=== PATIENT | female | born 2000 | race Caucasian/White ===

== ENCOUNTER → 2019-01-23 | Outpatient (CLI) | payer BC, SELFPAY ==
[2019-01-24 09:46] LABS: Hepatitis B Surface Antibody Non-Reactive; Rubella IgG WCH Employee > 500.0 IU/mL
[2019-01-27 17:05] LABS: V-Zoster IgG (Immunity) < 135 index (Immune >165)
== END | disposition home or self-care (01) ==
PROVIDERS: Family Provider Family Medicine; PCP Family Medicine; Visit Provider Family Medicine
DX: Z00.00 Encounter for general adult medical examination without abnormal findings (principal); Z01.84 Encounter for antibody response examination; Z02.0 Encounter for examination for admission to educational institution
CPT/HCPCS: 36415; 86706; 86735; 86762; 86765; 86787; 87798

== ENCOUNTER → 2020-11-28 | Outpatient (CLI) | payer BC, SELFPAY ==
[2020-11-28 11:40] VITALS: BMI 26.1
[2020-12-02 20:07] LABS: Chlamydia By Nucleic Acid AMP Negative (Negative)
[2020-12-02 20:35] LABS: Gonococcus By Nucleic Acid AMP Negative (Negative)
== END | disposition home or self-care (01) ==
LOC: LABSPEC 14:03
PROVIDERS: PCP Family Medicine; Visit Provider Nurse Practitioner Women's Health
DX: N94.9 Unspecified condition associated with female genital organs and menstrual cycle (principal); Z11.3 Encounter for screening for infections with a predominantly sexual mode of transmission
CPT/HCPCS: 87070; 87205; 87491; 87591

== ENCOUNTER → 2021-04-11 | Outpatient (CLI) | payer BC, SELFPAY ==
[2021-04-15 12:32] LABS: HPV Reflexed? NOT INDICATED
== END | disposition home or self-care (01) ==
PROVIDERS: PCP Family Medicine; Referring Provider Obstetrics & Gynecology; Visit Provider Obstetrics & Gynecology
DX: Z12.4 Encounter for screening for malignant neoplasm of cervix (principal)
CPT/HCPCS: 88175; G0145

== ENCOUNTER → 2022-08-14 | Outpatient (CLI) | payer BC, SELFPAY ==
[2022-08-14 12:26] LABS: Absolute Lymphocyte Count 2.62 X10^3/uL (0.83-4.51); Absolute Neutrophil Count 2.8 X10^3/uL (2.0-7.7); Basophil# 0.04 X10^3/uL; Basophil% 0.7 % (0-1); Eosinophil# 0.05 X10^3/uL; Eosinophils% 0.8 % (0-5); Hematocrit 43.6 % (37-47); Hemoglobin 14.5 g/dL (12.0-15.0); Lymphocyte # 2.62 X10^3/ul (0.83-4.51); Lymphocyte % 44.5 % (19-41); Mean Corp Hgb Conc 33.3 g/dL (32-36); Mean Corpuscular Hgb 30.7 pg (27.0-32.0); Mean Corpuscular Volume 92.4 fL (81-99); Monocyte# 0.41 X10^3/uL; NRBC Flagged by Analyzer 0 % (0-5); Neutrophil # 2.75 X10^3/uL (2.7-7.7); Neutrophil % 46.7 % (47-70); Platelet Count 191 K/mm3 (150-450); RBC Distribution Width CV 12.1 % (11.6-14.6); Red Blood Count 4.72 M/mm3 (4.2-5.4); White Blood Count 5.9 K/mm3 (4.4-11.0)
[2022-08-14 12:55] LABS: ALB/GLOB Ratio 1.1 RATIO (0.9-2.4); AST(SGOT) 16 U/L (15-37); Alanine Aminotransfer ALT/SGPT 18 U/L (13-56); Albumin, Serum 3.8 g/dL (3.2-5.0); Alkaline Phosphatase 90 U/L (45-117); Anion Gap 7 (5-15); BUN 13 mg/dL (7-18); BUN/Creat Ratio 12.6 RATIO (10-20); Calcium,Total 9.4 mg/dL (8.5-10.1); Chloride 106 mmol/L (98-107); Creatinine, Serum 1.03 mg/dL (0.55-1.02); EST Glomerular Filtration Rate 71 mL/min (>60); Est Glom Filt Rate - Afr Amer 85 mL/min (>60); Globulin 3.6 g/dL (2.2-4.2); Glucose 88 mg/dL (74-106); Potassium 3.9 mmol/L (3.5-5.1); Protein, Total 7.4 g/dL (6.4-8.2); Sodium Level 139 mmol/L (136-145)
== END | disposition home or self-care (01) ==
PROVIDERS: PCP Family Medicine; Visit Provider Family Medicine
DX: R10.9 Unspecified abdominal pain (principal)
CPT/HCPCS: 36415; 80053; 85025

== ENCOUNTER → 2022-08-22 | Outpatient (CLI) | payer BC, SELFPAY ==
--- NOTE | 2022-08-22 10:51 | US_ITS ---
STUDY: ABDOMINAL ULTRASOUND REASON FOR EXAM: Female, 22 years old. Abdominal pain. TECHNIQUE: Transabdominal ultrasound was performed with real-time and static reed scale imaging. TECHNICAL QUALITY: Adequate. COMPARISON: None. FINDINGS: Liver: The liver measures cm. There is normal echogenicity of the liver. The bile ducts are within normal limits. There is hepatic color flow. The direction of portal flow is hepatopetal. There is no demonstrated mass lesion. Portal vein measurement: Gallbladder: Normal distended gallbladder. The gallbladder wall measures 1 mm. There is a negative sonographic Alvarado''s sign. There is no pericholecystic fluid. There are no gallstones. Common Bile Duct (C.B.D.): The common bile duct measures 2 mm. Pancreas: Normal size of the head, body and tail of the pancreas. There is normal echogenicity of the pancreas. There is no demonstrated pancreatic mass or cyst. The pancreatic duct is not dilated. Spleen: Normal size of the spleen. The spleen measures 8.9 x 3.0 x 3.3 cm. Right Kidney: Normal size of the right kidney. The right kidney measures 9.8 x 3.5 x 4.3 cm. Normal renal cortex. The right cortex measures 1.2 cm. There is no demonstrated renal mass or cyst. There is no right hydronephrosis. Left Kidney: Normal size of the left kidney. The left kidney measures 9.4 x 5.2 x 5.2 cm. Normal renal cortex. The left cortex measures 1.0 cm. There is no demonstrated renal mass or cyst. There is no left hydronephrosis. Aorta: Proximal diameter is 1.6 cm. Mid diameter is 1.2 cm. Distal diameter is 1.2 cm. No aneurysm. I.V.C.: The IVC is patent. There is no ascites. US/Abdomen Complete IMPRESSION: Normal abdominal ultrasound examination. COMMENT: computer technologist notes minimal floating debris seen in gallbladder with patient turned into LLD position. I am unable to confirm the presence of sludge inside the gallbladder fossa. Electronically Signed: Tk Barreto MD at 11:50 EST ,
== END | disposition home or self-care (01) ==
PROVIDERS: PCP Family Medicine; Referring Provider Family Medicine; Visit Provider Family Medicine
DX: R10.9 Unspecified abdominal pain (principal)
CPT/HCPCS: 76700

== ENCOUNTER → 2024-05-19 | Outpatient (CLI) | payer BC, SELFPAY ==
--- OUTSIDE RECORDS SUMMARY | 2024-05-19 17:18 | XMS RPT_ITS | CCD ---
Author Organization [facility] Results Test Name Value Interpretation Reference Range Facil ity OBSOLETEon 04-08-2019 OBSOLETE Refill (WOOB) DORA PUGA ([id number]) 2000 F Date Time Provider Department 04/08/19 [facility]OLDER) IFTIKHAR During your visit today, we recorded the following information about you: Yolande Monroy RN 04/10/2019 10:41 AM Signed Left message for patient to return phone call. Patient last seen in office 11/18/2017. Cancelled yearly exam 02/14/2019. Please schedule annual exam when patient returns phone call. Regine Cordova RN 04/12/2019 1:04 PM Signed See 02/13/19 phone note. Patient transferred care. Regine Cordova RN Allergies As of Date: 04/08/2019 Noted Allergy Reaction CODEINE 05/20/2015 4 - Hives Date Reviewed: 11/18/2017 Reviewed by: Emi Holder - Fully Assessed Reason for Visit: Refill Request [94] Prescriptions as of 04/08/2019 Sig: ESTARYLLA 0.25 MG-35 MCG TABL* TAKE 1 TABLET DAILY (TAKE ACT* Problem List As Of Date: 04/08/2019 (None) Encounter Status:Closed by REGINE CORDOVA RN on 04/12/19 [facility] OBSOLETEon 02-01-2019 OBSOLETE Refill (WOOB) DORA PUGA ([id number]) 2000 F Date Time Provider Department 02/01/19 JU HARDIN ([facility]) IFTIKHAR During your visit today, we recorded the following information about you: Suri Haeys RN 02/01/2019 8:13 AM Signed Refill request received from pharmacy for patients OCP Rx. Patient last seen in the office on 11/18/17. Please file temporary refill if appropriate. PSS: Please contact patient to schedule annual exam. Thank you. Suri Hayes RN Allergies As of Date: 02/01/2019 Noted Allergy Reaction CODEINE 05/20/2015 4 - Hives Date Reviewed: 11/18/2017 Reviewed by: Emi ([facility]) Glory - Fully Assessed Reason for Visit: Refill Request [94] Order(s):ESTARYLLA 0.25-35 mg-mcg per tabletTAKE 1 TABLET DAILY (TAKE ACTIVE PILLS ONLY)Disp: 112 tabletRfl: 0 Prescriptions as of 02/01/2019 Sig: ESTARYLLA 0.25 MG-35 MCG TABL* TAKE 1 TABLET DAILY (TAKE ACT* Problem List As Of Date: 02/01/2019 (None) Prescriptions ordered this encounter Disp Refills Start End ESTARYLLA 0.25 MG-35 MCG TABLET 112 * 0 02/01/2019 Sig: TAKE 1 TABLET DAILY (TAKE ACTIVE PILLS ONLY) Medications Discontinued During This Encounter norgestimate 0.25 mg-ethinyl estradi* 4 Pa* 4 11/10/2017 02/01/2019 Route: ORAL Sig: Take 1 tablet by mouth once daily. Take active pills only Disc: Reason for discontinue is not on file. Encounter Status:Closed by EMI HOLDER on 02/01/19 [facility] Summary Purpose Family History No Family History Records Found Advance Directives No Advanced Directives Records Found Additional Source Comments INFORMATION SOURCE (unrecogn ized section and content) DATE CREATED AUTHOR 04/12/2019 [facility] FOR RECORDS PERTAINING TO PATIENTS WHO ARE OR HAVE BEEN ENROLLED IN A CHEMICAL DEPENDENCY/SUBSTANCEABUSE PROGRAM, SOME INFORMATION MAY BE OMITTED. This clinical summary was aggregated from multiple sources. Caution should be exercised in using it in the provision of clinical care. This summary normalizes information from multiple sources, and as a consequence, information in this document may materially change the coding, format and clinical context of patient data. In addition, data may be omitted in some cases. CLINICAL DECISIONS SHOULD BE BASED ON THE PRIMARY CLINICAL RECORDS. [facility] [employer] [facility]. provides no warranty or guarantee of the accuracy or completeness of information in this document.
[2024-05-27 16:43] LABS: HPV Reflexed? NOT INDICATED
== END | disposition home or self-care (01) ==
LOC: LABSPEC 15:30
PROVIDERS: PCP Family Medicine; Referring Provider Obstetrics & Gynecology; Visit Provider Obstetrics & Gynecology
DX: Z12.4 Encounter for screening for malignant neoplasm of cervix (principal)
CPT/HCPCS: 88175; G0145

== ENCOUNTER → 2025-06-17 | Outpatient (CLI) | payer BC, SELFPAY ==
--- OUTSIDE RECORDS SUMMARY | 2025-06-17 15:02 | XMS RPT_ITS | CCD ---
Author Organization [facility] Care Team Providers Care Test Deskman Name Role Phone Dr. Tiffany Ford Primary Care Provider Dr. Tiffany Ford Referring Provider Dr. Rita Valdez Attending Provider Tiffany Ford Primary Care Unavailable Tiffany Ford Referring Unavailable Rita Valdez Attending Rita Pool Attending Rita Pool Referring Tiffany Xiao Primary Care Unavailable Allergies Allergy Classification Reported Allergen(s) Allergy Type Date of Onset Reaction(s) Facility (3 sources) Codeine Drug Allergy 04-17-2022 unknown [facility] (1 source) Codeine Drug Allergy 05-19-2024 [facility] Repository Medications Current Medications Medication Drug Class(es) Dates Sig (Normalized) Sig (Original) esomeprazole 20 mg delayed release oral capsule (3 sources) Proton Pump Inhibitor Start: 11-28-2020 take 20 mg by mouth once daily Esomeprazole Magnesium Active 20 MG PO DAILY November 27, 2020 11:00pm Norgestimate-Ethiny l Estradiol (20 sources) Progestin, Estrogen Start: 06-19-2022 take 1 tablet by mouth once daily Norgestimate-Ethiny l Estradiol (Sprintec (28)) 0.25-35 mg-mcg tablet Active 1 TABLET PO DAILY June 19, 2022 3:10pm Start: 04-17-2022 End: 06-19-2022 take 1 tablet by mouth once daily Norgestimate-Ethinyl Estradiol (Sprintec (28)) 0.25-35 mg-mcg tablet Discontinued 1 TABLET PO DAILY April 17, 2022 2:09pm June 19, 2022 3:10pm Start: 03-24-2022 End: 04-17-2022 take 1 tablet by mouth once daily Norgestimate-Ethinyl Estradiol (Sprintec (28)) 0.25-35 mg-mcg tablet Discontinued 1 TABLET PO DAILY March 24, 2022 7:46am April 17, 2022 2:09pm Start: 04-28-2021 End: 03-24-2022 take 1 tablet by mouth once daily Norgestimate-Ethinyl Estradiol (Sprintec (28)) 0.25-35 mg-mcg tablet Discontinued 1 TABLET PO DAILY April 28, 2021 12:34pm March 24, 2022 7:46am Start: 04-11-2021 End: 04-28-2021 take 1 tablet by mouth once daily Norgestimate-Ethinyl Estradiol (Sprintec (28)) 0.25-35 mg-mcg tablet Discontinued 1 TABLET PO DAILY April 11, 2021 11:17am April 28, 2021 12:34pm Start: 04-05-2020 End: 04-11-2021 take 1 tablet by mouth once daily Norgestimate-Ethinyl Estradiol (Sprintec (28)) 0.25-35 mg-mcg tablet Discontinued 1 TABLET PO DAILY April 05, 2020 10:57am April 11, 2021 11:17am Start: 02-27-2020 End: 04-05-2020 take 1 tablet by mouth once daily Norgestimate-Ethinyl Estradiol (Sprintec (28)) 0.25-35 mg-mcg tablet Discontinued 1 TABLET PO DAILY February 27, 2020 8:11am April 05, 2020 10:58am Start: 09-12-2019 End: 02-27-2020 take 1 tablet by mouth once daily Norgestimate-Ethinyl Estradiol (Sprintec (28)) 0.25-35 mg-mcg tablet Discontinued 1 TABLET PO DAILY September 12, 2019 3:08pm February 27, 2020 8:11am Start: 02-20-2019 End: 09-12-2019 take 1 tablet by mouth once daily Norgestimate-Ethinyl Estradiol (Sprintec (28)) 0.25-35 mg-mcg tablet Discontinued 1 TABLET PO DAILY February 19, 2019 11:00pm September 12, 2019 3:09pm Completed/Discontinued Medications Medication Drug Class(es) Dates Sig (Normalized) Sig (Original) metroNIDAZOLE 500 mg oral tablet (3 sources) Nitroimidazole Antimicrobial Start: 11-28-2020 End: 04-11-2021 take 1 tablet by mouth twice daily Metronidazole (Flagyl) 500 mg tablet Discontinued 500 MG PO TWICE A DAY November 27, 2020 11:00pm April 11, 2021 10:50am Problems Problem Classification Problem Date Documented Da te Episodic/Chronic Other screening for suspected conditions (not mental disorders or infectious disease) (1 source) Encounter for screening for malignant neoplasm of cervix; Translations: [Encounter for screening for malignant neoplasm of cervix] Onset: 06-09-2024 Episodic Results Test Name Value Interpretation Reference Range Facility PAP I-G w/rfx hrHPV-Aptimaon 05-27-2024 ADEQ Comment Normal . [facility] Comment on above: Order Comment: Specgeovanna streeter Comment: [id number] Specimen Comment: No. of containers..01 ThinPrep Vial Result Comment: Sati sfactory for evaluation. Endocervical and/or squamous metaplastic cells (endocervical component) are present. Performed By: #### L 7400.0353 #### [facility] [address] [place], [place], [id number] COMM . Normal . [facility] Comment on above: Order Comment: Sadiq streeter Comment: [id number] Specimen Comment: No. of containers..01 ThinPrep Vial Performed By: #### L 7400.0353 #### [facility] [address] [place], [place], [id number] COMMENT Comment Normal . [facility] Comment on above: Order Comment: Ryanchanning home Comment: [id number] Specimen Comment: No. of containers..01 ThinPrep Vial Result Comment: This liquid based ThinPrep(R) pap test was screened with the use of an image guided system. Performed By: #### L 7400.0353 #### [facility] [address] [place], [place], [id number] DIAG Comment Normal . [facility] Comment on above: Order Comment: Speci men Comment: [id number] Specimen Comment: No. of containers..01 ThinPrep Vial Result Comment: NEGA TIVE FOR INTRAEPITHELIAL LESION OR MALIGNANCY. CELLULAR CHANGES ASSOCIATED WITH INFLAMMATION ARE PRESENT. Performed By: #### L 7400.0353 #### [facility] [address] [place], [address] HPV RFLX Comment Normal . [facility] Comment on above: Order Comment: Speci men Comment: [id number] Specimen Comment: No. of containers..01 ThinPrep Vial Result Comment: The HPV DNA reflex criteria were not met with this specimen result therefore, no HPV testing was performed. Performed at: [facility] [id number] Data Center Consultant: Tereza Faith MD, Phone: [phone] Performed By: #### L 7400.0353 #### [facility] [address] [place], [place], [id number] PAPSMR Comment Normal . [facility] Comment on above: Order Comment: Speci men Comment: [id number] Specimen Comment: No. of containers..01 ThinPrep Vial Result Comment: The Pap smear is a screening test designed to aid in the detection of premalignant and malignant conditions of the uterine cervix. It is not a diagnostic procedure and should not be used as the sole means of detecting cervical cancer. Both false-positive and false-negative reports do occur. Performed By: #### L 7400.0353 #### [facility] [address] [place], [place], [id number] PERFORM Comment Normal . [facility] Comment on above: Order Comment: Speci men Comment: [id number] Specimen Comment: No. of containers..01 ThinPrep Vial Result Comment: Renée Trejo Jury Consultant (ASCP) Performed By: #### L 7400.0353 #### [facility] [address] [place], [address] Tube Winder Hand Office Visit Reporton 05-19-2024 Tube Winder Hand Office Visit Report [facility] [address], [address] [place] [address] OFFICE VISIT Date of Service: 05/19/24 MR#: [id number] Acct: [id number] Name: DORA PUGA Rep #: [id number] : 2000 Provider: Dr. 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 Operator Required: No Is patient in pain?: No Allergies codeine Allergy (Mild, Verified 05/19/24 14:31) unknown Medications ???Medication ???Instructions ???Recorded ???Confirmed ???Type multivitamin 1 tab PO DAILY 05/14/23 05/19/24 History Is last menstrual period known: No Post menopausal: No Patient : No : [facility] Medical History Exercise-induced asthma Surgical History S/P tonsillectomy and adenoidectomy Family History Mother Stomach cancer Grandfather Skin cancer Pancreatic cancer Social History (Updated 05/19/24 @ 14:33 by Sherry Clemente) current occupational status: employed 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 - [employer] Gonzalez Smoking Status: Never smoker alcohol intake: never substance use type: does not use caffeine: Yes what type of physical activity do you participate in: running and weight training frequency: 5-6 times per week seatbelt use: always do you feel safe at home: Yes 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 (was my patient at [facility], Her mom and her sister are too. her mom 3 years ago stomach cancer. (Anitha Puga)) pt got in March 2023 to her boyfriend since 8th grade. have been in a home that they are renovating . not sure if they are ready for a baby yet. maybe in 5 years. She stopped her ocp though in meantime. Last PAP: due History of abnormal PAP: no Last mammogram: due at 39 History of abnormal mammogram: n/a Colon cancer screening: due at 44 Other preventative health care screenings: PCP Liliana Female Reproductive History Cycle Length: 21-35 Bleeding Duration: 5 Questions: metorrhagia: No, sexually active: Yes, dyspareunia: No and PCB: No Menopausal Symptoms: No hot flashes, No night sweats, No weight change, No mood changes, No difficulty concentrating, No sleep problems and No change in libido ROS Const Constitutional: Reports as per HPI; Denies fatigue, increased appetite, poor appetite, night sweats, weight gain or weight loss Cardio Card: Denies chest pain Resp Resp: Denies cough or dyspnea GI GI: Reports as per HPI; Denies abdominal pain, bloating, constipation, nausea or vomiting : Reports as per HPI and other; Denies difficulty voiding, dysuria, hematuria, hot flashes, nipple discharge, pelvic pain, prolapse symptoms, urinary frequency, urinary incontinence, urinary urgency, vaginal discharge, vaginal dryness, vaginal odor or vaginal pruritus Skin Skin/Breast: Denies changing lesions, breast mass, breast pain, breast skin changes or nipple discharge Psych Psych: Denies anxiety, change in libido, depression or difficulty concentrating Exam Const General: cooperative, healthy appearing, comfortable, no acute distress, well developed and well groomed [facility] Head: normal to inspection and normocephalic Ears: hearing grossly normal bilaterally and external ears normal Nose: external nose normal Face and sinus: normal facial exam Neck Neck: normal visual inspection, full ROM and no lymphadenopathy Thyroid: thyroid normal Chest Chest palpation inspection: normal inspection of the chest Breast inspection: normal inspection of the breasts and normal inspection of the axillae Breast palpation: normal palpation of the breasts, normal palpation of the axillae and no axillary lymphadenopathy Resp Effort Inspection: normal respiratory effort GI Inspection: normal to inspection and non-distended Palpation: soft, no hepatosplenomegaly and no guarding General: bladder normal to palpation External Female Exam: normal external appearance, normal appearance of the urethra and no lesions Urethra: normal appearance of the urethra and normal palpation Speculum Exam - Vagina: normal appearance of the vagina and normal vaginal discharge Speculum Exam - Cervix: (more content not included)... Normal [facility] Absolute lymphocyte countOrd ered By: Dr. Ford on 08-14-2022 Lymphocytes Auto (Unsp spec) [#/Vol] 2.62 10*3/uL 0.83-4.51 [facility] Basophil percentageOrdered B y: Dr. Ford on 08-14-2022 Basophils/100 WBC (Bld) 0.7 % 0-1 [facility] Bilirubin [Mass/Vol] 1.60 mg/dL 0.20-1.00 [facility] Comment on above: For patients on eltr ombopag therapy, use of Dimension [place] TBIL is not recommended. Chloride [Moles/Vol] 106 mmol/L 98-107 [facility] Eosinophils/100 WBC (Bld) 0.8 % 0-5 [facility] Glucose [Mass/Vol] 88 mg/dL 74-106 [facility] Neutrophils (Bld) [#/Vol] 2.8 10*3/uL 2.0-7.7 [facility] Neutrophils/100 WBC (Bld) 46.7 % 47-70 [facility] Potassium [Moles/Vol] 3.9 mmol/L 3.5-5.1 [facility] Protein [Mass/Vol] 7.4 g/dL 6.4-8.2 [facility] Sodium [Moles/Vol] 139 mmol/L 136-145 [facility] WBC (Bld) [#/Vol] 5.9 10*3/uL 4.4-11.0 [facility] Blood erythrocytes count (nu mber/volume)Ordered By: Dr. Ford on 08-14-2022 RBC (Bld) [#/Vol] 4.72 10*6/uL 4.2-5.4 [facility] Blood hemoglobin measurement (mass/volume)Ordered By: Dr. Ford on 08-14-2022 Hemoglobin (Bld) [Mass/Vol] 14.5 g/dL 12.0-15.0 [facility] Blood lymphocytes/100 leukoc ytesOrdered By: Dr. Ford on 08-14-2022 Lymphocytes/100 WBC (Bld) 44.5 % 19-41 [facility] Blood monocytes/100 leukocyt esOrdered By: Dr. Ford on 08-14-2022 Monocytes/100 WBC (Bld) 7.0 % 0-10 [facility] Blood platelet mean volumeOr dered By: Dr. Ford on 08-14-2022 Platelet mean volume (Bld) [Entitic vol] 12.0 fL 6.2-12.0 [facility] Determination of erythrocyte mean corpuscular volume (MCV)Ordered By: Dr. Ford on 08-14-2022 MCV (RBC) [Entitic vol] 92.4 fL 81-99 [facility] Hematocrit Auto (Bld) [Volum e fraction]Ordered By: Dr. Ford on 08-14-2022 Hematocrit (Bld) [Volume fraction] 43.6 % 37-47 [facility] - Chemistry and C hemistry - challengeOrdered By: Dr. Ford on 08-14-2022 ALP [Catalytic activity/Vol] 90 U/L 45-117 [facility] ALT [Catalytic activity/Vol] 18 U/L 13-56 [facility] CO2 [Moles/Vol] 26.0 mmol/L 21.0-32.0 [facility] Globulin (S) [Mass/Vol] 3.6 g/dL 2.2-4.2 [facility] Urea nitrogen/Creatinine [Mass ratio] 12.6 mg/mg 10-20 [facility] - Hematology and Cell countsOrdered By: Dr. Ford on 08-14-2022 Erythrocyte distribution width (RBC) [Entitic vol] 41.0 fL 35.1-43.9 [facility] Erythrocyte distribution width (RBC) [Ratio] 12.1 % 11.6-14.6 [facility] Immature granulocytes/100 WBC (Bld) 0.300 % 0.0-0.9 [facility] Comment on above: IG% - Immature Granu locytes (promyelocytes, myelocytes and metamyelocytes) > 1% indicates that a LEFT SHIFT is Present. MCH (RBC) [Entitic mass] 30.7 pg 27.0-32.0 [facility] Nucleated RBC/100 WBC (Bld) [Ratio] 0 % 0-5 [facility] MCHC Auto (RBC) [Mass/Vol]Or dered By: Dr. Ford on 08-14-2022 MCHC (RBC) [Mass/Vol] 33.3 g/dL 32-36 [facility] No Panel InformationOrdered By: Dr. Ford on 08-14-2022 Estimated GFR (MDRD) Amer 85 mL/min >60 [facility] Comment on above: GFR Calc Estimated GFR (MDRD) Non-Af Amer 71 mL/min >60 [facility] Comment on above: Non- GFR Calc Platelets bldOrdered By: Dr. Ford on 08-14-2022 Platelets (Bld) [#/Vol] 191 10*3/uL 150-450 [facility] Serum or plasma albumin terra urement (mass/volume)Ordered By: Dr. Ford on 08-14-2022 Albumin [Mass/Vol] 3.8 g/dL 3.2-5.0 [facility] Serum or plasma albumin/glob ulin mass ratioOrdered By: Dr. Ford on 08-14-2022 Albumin/Globulin [Mass ratio] 1.1 {ratio} 0.9-2.4 [facility] Serum or plasma calcium terra urement (mass/volume)Ordered By: Dr. Ford on 08-14-2022 Calcium [Mass/Vol] 9.4 mg/dL 8.5-10.1 [facility] Serum or plasma creatinine m easurement (mass/volume)Ordered By: Dr. Ford on 08-14-2022 Creatinine [Mass/Vol] 1.03 mg/dL 0.55-1.02 [facility] Comment on above: The validity of the calculated GFR & GFRAA in patients over 70 years has not been determined. Clinical correlation is essential. Serum or plasma urea nitroge n measurement (mass/volume)Ordered By: Dr. Ford on 08-14-2022 Urea nitrogen [Mass/Vol] 13 mg/dL 7-18 [facility] Thin prep Papanicolaou smear with manual screeningOrdered By: Dr. Ford on 08-14-2022 Thin prep Papanicolaou smear with manual screening 16 U/L 15-37 [facility] Thin prep Papanicolaou smear with manual screening 7 5-15 [facility] OBSOLETEon 04-08-2019 OBSOLETE Refill (WOOB) DORA PUGA ([id number]) 2000 F Date Time Provider Department 04/08/19 EMI HOLDER) IFTIKHAR During your visit today, we recorded the following information about you: Yolande Monroy RN 04/10/2019 10:41 AM Signed Left message for patient to return phone call. Patient last seen in office 11/18/2017. Cancelled yearly exam 02/14/2019. Please schedule annual exam when patient returns phone call. Pablo Segal RN 04/12/2019 1:04 PM Signed See 02/13/19 phone note. Patient transferred care. Pablo Segal RN Allergies As of Date: 04/08/2019 Noted Allergy Reaction CODEINE 05/20/2015 4 - Hives Date Reviewed: 11/18/2017 Reviewed by: Emi Holder - Fully Assessed Reason for Visit: Refill Request [94] Prescriptions as of 04/08/2019 Sig: ESTARYLLA 0.25 MG-35 MCG TABL* TAKE 1 TABLET DAILY (TAKE ACT* Problem List As Of Date: 04/08/2019 (None) Encounter Status:Closed by PABLO SEGAL RN on 04/12/19 Normal [facility] OBSOLETEon 02-01-2019 OBSOLETE Refill (WOOB) DORA PUGA ([id number]) 2000 F Date Time Provider Department 02/01/19 JU HARDIN ([facility]) IFTIKHAR During your visit today, we recorded the following information about you: Suri Hayes RN 02/01/2019 8:13 AM Signed Refill request received from pharmacy for patients OCP Rx. Patient last seen in the office on 11/18/17. Please file temporary refill if appropriate. PSS: Please contact patient to schedule annual exam. Thank you. Suri Hayes RN Allergies As of Date: 02/01/2019 Noted Allergy Reaction CODEINE 05/20/2015 4 - Hives Date Reviewed: 11/18/2017 Reviewed by: [facility] - Fully Assessed Reason for Visit: [...] Encounter Status:Closed by EMI HOLDER on 02/01/19 Normal [facility] Vital Signs Date Time Vital Sign Value Performing Clinician Mellisa samson 04-17-2022 14:48-0400 Body height 160.[address] Tiffany Ford Work Phone: [facility] Work Phone: 04-17-2022 14:46-0400 Body mass index (BMI) [Ratio] 24.2 kg/m2 Dr. Tiffany Ford Work Phone: [facility] Work Phone: 04-17-2022 14:46-0400 Body weight 64.[address] Tiffany Ford Work Phone: [facility] Work Phone: 04-17-2022 14:46-0400 Diastolic blood pressure 82 mm[Hg] Dr. Tiffany Ford Work Phone: [facility] Work Phone: 04-17-2022 14:46-0400 Systolic blood pressure 135 mm[Hg] Dr. Tiffany Ford Work Phone: [facility] Work Phone: Encounters Encounter Date Encounter Type Care Provider Facility Start: 05-19-2024 End: 05-19-2024 ambulatory Tiffany Ford [place] [place]: 05-19-2024 End: 05-19-2024 ambulatory Rita Valdez Facility:[facility] Start: 08-22-2022 End: 08-22-2022 ambulatory [facility] Work Phone: Start: 08-22-2022 End: 08-22-2022 Patient encounter procedure [facility]tras[facility], [facility] Start: 08-14-2022 End: 08-14-2022 ambulatory [facility] Work Phone: Start: 08-14-2022 End: 08-14-2022 Patient encounter procedure [facility]-Thelma Vicente [facility] Start: 04-17-2022 End: 04-17-[address] Tiffany Ford Work Phone: [facility] Start: 04-11-[address] Sagrario Ford Work Phone: [facility] Procedures Date Procedure Procedure Detail Performing Clinician Start: 08-22-2022 CT of abdomen Payers Date Payer Category Payer Self-pay [id number] 2023 Unknown [id number] Unknown ANTHEM [id number] Unknown [employer] [place] [id number] Unknown [employer] [place] [id number] Unknown [facility] PACKAGE PLAN [id number] Unknown [id number] Unknown [id number] Social History Date Type Detail Facility Start: 04-17-2022 Tobacco smoking stat [facility] Unknown if ever smoked [facility] Start: 2000 Sex Assigned At Female W [facility] Evaluation note Note Date & Type Note Facility Evaluation note Diagnosis Onset Date Encounter for routine gyneco logical examination noneactive [facility] Work Phone: Evaluation note Note Date & Type Note Facility Evaluation note No assessment information availa ble [facility] Work Phone: Summary Purpose Family History No Family History Records Found Relationship Condition Age at Onset Recorded Date/T glenny mother Malignant neoplasm of stomach Unknown grandfather Malignant neoplasm of skin Unknown Malignant neoplasm of pancreas Unknown Advance Directives No Advanced Directives Records FoundNo Advanced Directives Records Found Chief Complaint and Reason for Visit 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) Reason for Visit Encounter for routin e gynecological examination Chief Complaint ABD PAIN Additional Source Comments INFORMATION SOURCE (unrecogn ized section and content) DATE CREATED AUTHOR 04/12/2019 [facility] DATE CREATED AUTHOR AUTHOR'S ORGANIZ ATION 06/12/2024 [facility] Goals (unrecognized section and content) Goals may be documented in a n alternate sectionGoals may be documented in an alternate sectionGoals may be documented in an alternate section Care Teams (unrecognized sec tion and content) Team Status: Active Member Role Status Dates Dr. Tiffany Ford , DO Family Provider Active Dr. Tiffany Ford , DO Primary Care Provider Active Team Status: Inactive Member Role Status Dates Dr. Tiffany Ford , Primary Care Provider, Attending P ginger Active Team Status: Active Member Role Status Dates Dr. Tiffany Ford , DO Primary Care Provider Active Dr. Eros Henson , DO Attending Provider, Referring P rochito Active Team Status: Inactive Member Role Status Dates Dr. Tiffany Ford , Primary Care Provider Active Dr. Eros Henson , DO Attending Provider, Referring P rovider Active FOR RECORDS PERTAINING TO PATIENTS WHO ARE [...] BE BASED ON THE PRIMARY CLINICAL RECORDS. [facility]. provides no warranty or guarantee of the accuracy or completeness of information in this document.
[2025-06-17 16:01] LABS: hCG Titer Quant., Serum 7 mIU/mL (<9 non-preg)
[2025-06-19 19:01] LABS: hCG Titer Quant., Serum 2 mIU/mL (<9 non-preg)
== END | disposition home or self-care (01) ==
PROVIDERS: PCP Family Medicine; Referring Provider Nurse Practitioner Family; Visit Provider Nurse Practitioner Family
DX: N93.9 Abnormal uterine and vaginal bleeding, unspecified (principal)
CPT/HCPCS: 36415; 84702

== ENCOUNTER → 2025-07-23 | Outpatient (CLI) | payer BC, SELFPAY ==
[2025-07-23 17:19] LABS: hCG Titer Quant., Serum 4328 mIU/mL (<9 non-preg)
--- OUTSIDE RECORDS SUMMARY | 2025-07-23 20:03 | XMS RPT_ITS | CCD ---
Author Organization [facility] Care Team Providers Care Washer Meat Name Role Phone Dr. Tiffany Ford Primary Care Provider [phone] Dr. Tiffany Ford Referring Provider [phone] Rita Valdez Attending Provider Tiffany Ford Primary Care Unavailable Tiffany Ford Referring Unavailable Rita Valdez Attending Rita Pool Attending Rita Pool Referring Tiffany Xiao Primary Care Unavailable Allergies Allergy Classification Reported Allergen(s) Allergy Type Date of Onset Reaction(s) Facility (3 sources) Codeine Drug Allergy 04-17-2022 unknown [facility] (1 source) Codeine Drug Allergy 05-19-2024 [facility] Repository Medications Current Medications Medication Drug [...] w/rfx hrHPV-Aptimaon 05-27-2024 ADEQ Comment Normal . [facility] Comment on above: Order Comment: Specgeovanna streeter Comment: [id number] Specimen Comment: No. of containers..01 ThinPrep Vial Result Comment: Sati sfactory for evaluation. Endocervical and/or squamous metaplastic cells (endocervical component) are present. Performed By: #### L 7400.0353 #### [facility] [address] [place], [place], [id number] COMM . Normal . [facility] Comment on above: Order Comment: Sadiq streeter Comment: [id number] Specimen Comment: No. of containers..01 ThinPrep Vial Performed By: #### L 7400.0353 #### [facility] [address] [place], [place], [id number] COMMENT Comment Normal . [facility] Comment on above: [facility] Comment: [id number] Specimen Comment: No. of containers..01 ThinPrep Vial Result Comment: This liquid based ThinPrep(R) pap test was screened with the use of an image guided system. Performed By: #### L 7400.0353 #### [facility] [address] [place], [place], [id number] DIAG Comment Normal . [facility] Comment on above: Order Comment: Speci men Comment: [id number] Specimen Comment: No. of containers..01 ThinPrep Vial Result Comment: NEGA TIVE FOR INTRAEPITHELIAL LESION OR MALIGNANCY. CELLULAR CHANGES ASSOCIATED WITH INFLAMMATION ARE PRESENT. Performed By: #### L 7400.0353 #### [facility] [address] [place], [address] HPV RFLX Comment Normal . [facility] Comment on above: Order Comment: Speci men Comment: [id number] Specimen Comment: No. of containers..01 ThinPrep Vial Result Comment: The HPV DNA reflex criteria were not met with this specimen result therefore, no HPV testing was performed. Performed at: [facility] [id number] Table Operator: Tereza Faith MD, Phone: [phone] Performed By: #### L 7400.0353 #### [facility] [address] [place], [place], [id number] PAPSMR Comment Normal . [facility] Comment on above: Order Comment: Speci men Comment: [id number] Specimen Comment: No. of containers..01 ThinPrep Vial Result Comment: The Pap smear is a screening test designed to aid in the detection of premalignant and malignant conditions of the uterine cervix. It is not a diagnostic procedure and should not be used as the sole means of detecting cervical cancer. Both false-positive and false-negative reports do occur. Performed By: #### L 7400.0353 #### [facility] [address] [place], [place], [id number] PERFORM Comment Normal . [facility] Comment on above: Order Comment: Speci men Comment: [id number] Specimen Comment: No. of containers..01 ThinPrep Vial Result Comment: Renée Trejo Exhibit Display Representative (ASCP) Performed By: #### L 7400.0353 #### [facility] [address] [place], [address] Supervising Floorperson Office Visit Reporton 05-19-2024 Supervising Floorperson Office Visit Report [facility] [address], [address] [place] [address] OFFICE VISIT Date of Service: 05/19/24 MR#: [id number] Acct: [id number] Name: DORA PUGA Rep #: [id number] : 2000 Provider: Dr. 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 Is patient in pain?: No Allergies codeine Allergy (Mild, Verified 05/19/24 14:31) unknown Medications ???Medication ???Instructions ???Recorded ???Confirmed ???Type multivitamin 1 tab PO DAILY 05/14/23 05/19/24 History Is last menstrual period known: No Post menopausal: No Patient : No : No [employer] [facility] Medical History Exercise-induced asthma Surgical History S/P tonsillectomy and adenoidectomy Family History Mother Stomach cancer Grandfather Skin cancer Pancreatic cancer Social History (Updated 05/19/24 @ 14:33 by Sherry Clemente) current occupational status: employed current occupation: [employer] - [employer] Ed Gonzalez Smoking Status: Never smoker alcohol intake: never substance use type: does not use caffeine: Yes what type of physical activity do you participate in: running and weight training frequency: 5-6 times per week seatbelt use: always do you feel safe at home: Yes 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 (was my patient at [facility], Her mom and her sister are too. [...] acute distress, well developed and well groomed [facility] Head: normal to inspection and normocephalic [...] - Cervix: (more content not included)... Normal [facility] Absolute lymphocyte countOrd ered By: Dr. Ford on 08-14-2022 Lymphocytes Auto (Unsp spec) [#/Vol] 2.62 10*3/uL 0.83-4.51 [facility] Basophil percentageOrdered B y: Dr. Ford on 08-14-2022 Basophils/100 WBC (Bld) 0.7 % 0-1 [facility] Bilirubin [Mass/Vol] 1.60 mg/dL 0.20-1.00 [facility] Comment on above: For patients on eltr ombopag therapy, use of Dimension Helper TBIL is not recommended. Chloride [Moles/Vol] 106 mmol/L 98-107 [facility] Eosinophils/100 WBC (Bld) 0.8 % 0-5 [facility] Glucose [Mass/Vol] 88 mg/dL 74-106 [facility] Neutrophils (Bld) [#/Vol] 2.8 10*3/uL 2.0-7.7 [facility] Neutrophils/100 WBC (Bld) 46.7 % 47-70 [facility] Potassium [Moles/Vol] 3.9 mmol/L 3.5-5.1 [facility] Protein [Mass/Vol] 7.4 g/dL 6.4-8.2 [facility] Sodium [Moles/Vol] 139 mmol/L 136-145 [facility] WBC (Bld) [#/Vol] 5.9 10*3/uL 4.4-11.0 [facility] Blood erythrocytes count (nu mber/volume)Ordered By: Dr. Ford on 08-14-2022 RBC (Bld) [#/Vol] 4.72 10*6/uL 4.2-5.4 [facility] Blood hemoglobin measurement (mass/volume)Ordered By: Dr. Ford on 08-14-2022 Hemoglobin (Bld) [Mass/Vol] 14.5 g/dL 12.0-15.0 [facility] Blood lymphocytes/100 leukoc ytesOrdered By: Dr. Ford on 08-14-2022 Lymphocytes/100 WBC (Bld) 44.5 % 19-41 [facility] Blood monocytes/100 leukocyt esOrdered By: Dr. Ford on 08-14-2022 Monocytes/100 WBC (Bld) 7.0 % 0-10 [facility] Blood platelet mean volumeOr dered By: Dr. Ford on 08-14-2022 Platelet mean volume (Bld) [Entitic vol] 12.0 fL 6.2-12.0 [facility] Determination of erythrocyte mean corpuscular volume (MCV)Ordered By: Dr. Ford on 08-14-2022 MCV (RBC) [Entitic vol] 92.4 fL 81-99 [facility] Hematocrit Auto (Bld) [Volum e fraction]Ordered By: Dr. Ford on 08-14-2022 Hematocrit (Bld) [Volume fraction] 43.6 % 37-47 [facility] - Chemistry and C hemistry - challengeOrdered By: Dr. Ford on 08-14-2022 ALP [Catalytic activity/Vol] 90 U/L 45-117 [facility] ALT [Catalytic activity/Vol] 18 U/L 13-56 [facility] CO2 [Moles/Vol] 26.0 mmol/L 21.0-32.0 [facility] Globulin (S) [Mass/Vol] 3.6 g/dL 2.2-4.2 [facility] Urea nitrogen/Creatinine [Mass ratio] 12.6 mg/mg 10-20 [facility] - Hematology and Cell countsOrdered By: Dr. Ford on 08-14-2022 Erythrocyte distribution width (RBC) [Entitic vol] 41.0 fL 35.1-43.9 [facility] Erythrocyte distribution width (RBC) [Ratio] 12.1 % 11.6-14.6 [facility] Immature granulocytes/100 WBC (Bld) 0.300 % 0.0-0.9 [facility] Comment on above: IG% - Immature Granu locytes (promyelocytes, myelocytes and metamyelocytes) > 1% indicates that a LEFT SHIFT is Present. MCH (RBC) [Entitic mass] 30.7 pg 27.0-32.0 [facility] Nucleated RBC/100 WBC (Bld) [Ratio] 0 % 0-5 [facility] MCHC Auto (RBC) [Mass/Vol]Or dered By: Dr. Ford on 08-14-2022 MCHC (RBC) [Mass/Vol] 33.3 g/dL 32-36 [facility] No Panel InformationOrdered By: Dr. Ford on 08-14-2022 Estimated GFR (MDRD) Amer 85 mL/min >60 [facility] Comment on above: GFR Calc Estimated GFR (MDRD) Non-Af Amer 71 mL/min >60 [facility] Comment on above: Non- GFR Calc Platelets bldOrdered By: Dr. Ford on 08-14-2022 Platelets (Bld) [#/Vol] 191 10*3/uL 150-450 [facility] Serum or plasma albumin terra urement (mass/volume)Ordered By: Dr. Ford on 08-14-2022 Albumin [Mass/Vol] 3.8 g/dL 3.2-5.0 [facility] Serum or plasma albumin/glob ulin mass ratioOrdered By: Dr. Ford on 08-14-2022 Albumin/Globulin [Mass ratio] 1.1 {ratio} 0.9-2.4 [facility] Serum or plasma calcium terra urement (mass/volume)Ordered By: Dr. Ford on 08-14-2022 Calcium [Mass/Vol] 9.4 mg/dL 8.5-10.1 [facility] Serum or plasma creatinine m easurement (mass/volume)Ordered By: Dr. Ford on 08-14-2022 Creatinine [Mass/Vol] 1.03 mg/dL 0.55-1.02 [facility] Comment on above: The validity of the calculated GFR & GFRAA in patients over 70 years has not been determined. Clinical correlation is essential. Serum or plasma urea nitroge n measurement (mass/volume)Ordered By: Dr. Ford on 08-14-2022 Urea nitrogen [Mass/Vol] 13 mg/dL 7-18 [facility] Thin prep Papanicolaou smear with manual screeningOrdered By: Dr. Ford on 08-14-2022 Thin prep Papanicolaou smear with manual screening 16 U/L 15-37 [facility] Thin prep Papanicolaou smear with manual screening 7 5-15 [facility] OBSOLETEon 04-08-2019 OBSOLETE Refill (WOOB) DORA PUGA ([id number]) 2000 F Date Time Provider Department 04/08/19 [...] by PABLO SEGAL RN on 04/12/19 Normal [facility] OBSOLETEon 02-01-2019 OBSOLETE Refill (WOOB) DORA PUGA ([id number]) 2000 F Date Time Provider Department 02/01/19 JU HARDIN ([facility]) IFTIKHAR During your visit today, we [...] Hives Date Reviewed: 11/18/2017 Reviewed by: [facility] - Fully Assessed Reason for [...] Status:Closed by EMI HOLDER on 02/01/19 Normal [facility] Vital Signs Date Time Vital Sign Value Performing Clinician Mellisa samson 04-17-2022 14:48-0400 Body height 160.[address] Tiffany Ford Work Phone: [facility] Work Phone: 04-17-2022 14:46-0400 Body mass index (BMI) [Ratio] 24.2 kg/m2 Dr. Tiffany Ford Work Phone: [facility] Work Phone: 04-17-2022 14:46-0400 Body weight 64.[address] Tiffany Ford Work Phone: [facility] Work Phone: 04-17-2022 14:46-0400 Diastolic blood pressure 82 mm[Hg] Dr. Tiffany Ford Work Phone: [facility] Work Phone: 04-17-2022 14:46-0400 Systolic blood pressure 135 mm[Hg] Dr. Tiffany Ford Work Phone: [facility] Work Phone: Encounters Encounter Date Encounter Type Care Provider Facility Start: 05-19-2024 End: 05-19-2024 ambulatory Tiffany Ford Facility:[facility] Start: 05-19-2024 End: 05-19-2024 ambulatory Rita Valedz Facility:[facility] Start: 08-22-2022 End: 08-22-2022 ambulatory [facility] Work Phone: Start: 08-22-2022 End: 08-22-2022 Patient encounter procedure [facility]-Ul[facility], [facility] Start: 08-14-2022 End: 08-14-2022 ambulatory [facility] Work Phone: Start: 08-14-2022 End: 08-14-2022 Patient encounter procedure [facility]-Thelma Vicente [facility] Start: 04-17-2022 End: 04-17-[address] Tiffany Ford Work Phone: [facility] Start: 04-11-[address] Sagrario Ford Work Phone: [facility] Procedures Date Procedure Procedure Detail Performing Clinician Start: 08-22-2022 CT of abdomen Payers Date Payer Category Payer Self-pay [id number] 2023 Unknown [id number] Unknown ANTHEM [id number] Unknown [employer] [place] [id number] Unknown [employer] [place] [facility] [id number] Unknown [facility] PACKAGE PLAN [id number] Unknown [id number] Unknown [id number] Social History Date Type Detail Facility Start: 04-17-2022 Tobacco smoking stat [facility] Unknown if ever smoked [facility] Start: 2000 Sex Assigned At Female [facility] Evaluation note Note Date & Type Note Facility Evaluation note Diagnosis Onset Date Encounter for routine gyneco logical examination noneactive [facility] Work Phone: Evaluation note Note Date & Type Note Facility Evaluation note No assessment information availa ble [facility] Work Phone: Summary Purpose Family History No Family History Records Found Relationship Condition Age at Onset Recorded Date/T glenny mother Malignant neoplasm of stomach Unknown grandfather Malignant neoplasm of skin Unknown Malignant neoplasm of pancreas Unknown Advance Directives No Advanced Directives Records FoundNo Advanced Directives Records Found Chief Complaint and Reason for Visit Chief Complaint 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 [facility]. provides no warranty or guarantee of the accuracy or completeness of information in this document.
== END | disposition home or self-care (01) ==
PROVIDERS: PCP Family Medicine; Visit Provider Obstetrics & Gynecology
DX: Z34.90 Encounter for supervision of normal pregnancy, unspecified, unspecified trimester (principal)
CPT/HCPCS: 36415; 84702

== ENCOUNTER → 2025-07-25 | Outpatient (CLI) | payer BC, SELFPAY ==
--- OUTSIDE RECORDS SUMMARY | 2025-07-25 14:46 | XMS RPT_ITS | CCD ---
Author Organization [facility] Care Team Providers Care Master Ocean Name Role Phone Dr. Tiffany Ford Primary Care Provider Dr. Tiffany Ford Referring Provider Dr. Rita Valdez Attending Provider [phone] Tiffany Ford Primary Care Unavailable Tiffany Ford Referring Unavailable Rita Valdez Attending Rita Pool Attending Rita Pool Referring Tiffany Xiao Primary Care Unavailable Allergies Allergy Classification Reported Allergen(s) Allergy Type Date of Onset Reaction(s) Facility (3 sources) Codeine Drug Allergy 04-17-2022 unknown [facility] (1 source) Codeine Drug Allergy 05-19-2024 [facility] Repository Medications Current Medications Medication Drug [...] w/rfx hrHPV-Aptimaon 05-27-2024 ADEQ Comment Normal . [facility] Comment on above: Order Comment: Specgeovanna streeter Comment: [id number] Specimen Comment: No. of containers..01 ThinPrep Vial Result Comment: Sati sfactory for evaluation. Endocervical and/or squamous metaplastic cells (endocervical component) are present. Performed By: #### L 7400.0353 #### [facility] [address] [place], [place], [id number] COMM . Normal . [facility] Comment on above: Order Comment: Sadiq streeter Comment: [id number] Specimen Comment: No. of containers..01 ThinPrep Vial Performed By: #### L 7400.0353 #### [facility] [address] [place], [place], [id number] COMMENT Comment Normal . [facility] Comment on above: Order Comment: [facility] Comment: [id number] Specimen Comment: No. of containers..01 ThinPrep Vial Result Comment: This liquid based ThinPrep(R) pap test was screened with the use of an image guided system. Performed By: #### L 7400.0353 #### [facility] [address] [place], [place], [id number] DIAG Comment Normal . [facility] Comment on above: Order Comment: Speci men Comment: [id number] Specimen Comment: No. of containers..01 ThinPrep Vial Result Comment: NEGA TIVE FOR INTRAEPITHELIAL LESION OR MALIGNANCY. CELLULAR CHANGES ASSOCIATED WITH INFLAMMATION ARE PRESENT. Performed By: #### L 7400.0353 #### [facility] [address] [place], [address] HPV RFLX Comment Normal . [facility] Comment on above: Order Comment: Speci men Comment: [id number] Specimen Comment: No. of containers..01 ThinPrep Vial Result Comment: The HPV DNA reflex criteria were not met with this specimen result therefore, no HPV testing was performed. Performed at: [facility] [id number] Desk Reporter: Tereza Faith MD, Phone: [phone] Performed By: #### L 7400.0353 #### [facility] [address] [place], [place], [id number] PAPSMR Comment Normal . [facility] Comment on above: Order Comment: Speci men Comment: [id number] Specimen Comment: No. of containers..01 ThinPrep Vial Result Comment: The Pap smear is a screening test designed to aid in the detection of premalignant and malignant conditions of the uterine cervix. It is not a diagnostic procedure and should not be used as the sole means of detecting cervical cancer. Both false-positive and false-negative reports do occur. Performed By: #### L 7400.0353 #### [facility] [address] [place], [place], [id number] PERFORM Comment Normal . [facility] Comment on above: Order Comment: Speci men Comment: [id number] Specimen Comment: No. of containers..01 ThinPrep Vial Result Comment: Renée Trejo [employer] (ASCP) Performed By: #### L 7400.0353 #### [facility] [address] [place], [address] Hide Stretcher [facility] Office Visit Reporton 05-19-2024 [facility] Stret[facility] Office Visit Report [facility] [address], [address] [place] [address] OFFICE VISIT Date of Service: 05/19/24 MR#: [id number] Acct: [id number] Name: DORA PUGA Rep #: [id number] : 2000 Provider: Dr. 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: No Is patient in pain?: No Allergies codeine Allergy (Mild, Verified 05/19/24 14:31) unknown Medications ???Medication ???Instructions ???Recorded ???Confirmed ???Type multivitamin 1 tab PO DAILY 05/14/23 05/19/24 History Is last menstrual period known: No Post menopausal: No Patient : No : No [facility] Medical History Exercise-induced asthma Surgical History S/P tonsillectomy and adenoidectomy Family History Mother Stomach cancer Grandfather Skin cancer Pancreatic cancer Social History (Updated 05/19/24 @ 14:33 by Sherry Clemente) current occupational status: employed 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 (was my patient at [facility], Her mom and her sister [...] acute distress, well developed and well groomed [facility] Head: normal to inspection and normocephalic [...] - Cervix: (more content not included)... Normal [facility] Absolute lymphocyte countOrd ered By: Dr. Ford on 08-14-2022 Lymphocytes Auto (Unsp spec) [#/Vol] 2.62 10*3/uL 0.83-4.51 [facility] Basophil percentageOrdered B y: Dr. Ford on 08-14-2022 Basophils/100 WBC (Bld) 0.7 % 0-1 [facility] Bilirubin [Mass/Vol] 1.60 mg/dL 0.20-1.00 [facility] Comment on above: For patients on eltr ombopag therapy, use of Dimension [place] TBIL is not recommended. Chloride [Moles/Vol] 106 mmol/L 98-107 [facility] Eosinophils/100 WBC (Bld) 0.8 % 0-5 [facility] Glucose [Mass/Vol] 88 mg/dL 74-106 [facility] Neutrophils (Bld) [#/Vol] 2.8 10*3/uL 2.0-7.7 [facility] Neutrophils/100 WBC (Bld) 46.7 % 47-70 [facility] Potassium [Moles/Vol] 3.9 mmol/L 3.5-5.1 [facility] Protein [Mass/Vol] 7.4 g/dL 6.4-8.2 [facility] Sodium [Moles/Vol] 139 mmol/L 136-145 [facility] WBC (Bld) [#/Vol] 5.9 10*3/uL 4.4-11.0 [facility] Blood erythrocytes count (nu mber/volume)Ordered By: Dr. Ford on 08-14-2022 RBC (Bld) [#/Vol] 4.72 10*6/uL 4.2-5.4 [facility] Blood hemoglobin measurement (mass/volume)Ordered By: Dr. Ford on 08-14-2022 Hemoglobin (Bld) [Mass/Vol] 14.5 g/dL 12.0-15.0 [facility] Blood lymphocytes/100 leukoc ytesOrdered By: Dr. Ford on 08-14-2022 Lymphocytes/100 WBC (Bld) 44.5 % 19-41 [facility] Blood monocytes/100 leukocyt esOrdered By: Dr. Ford on 08-14-2022 Monocytes/100 WBC (Bld) 7.0 % 0-10 [facility] Blood platelet mean volumeOr dered By: Dr. Ford on 08-14-2022 Platelet mean volume (Bld) [Entitic vol] 12.0 fL 6.2-12.0 [facility] Determination of erythrocyte mean corpuscular volume (MCV)Ordered By: Dr. Ford on 08-14-2022 MCV (RBC) [Entitic vol] 92.4 fL 81-99 [facility] Hematocrit Auto (Bld) [Volum e fraction]Ordered By: Dr. Ford on 08-14-2022 Hematocrit (Bld) [Volume fraction] 43.6 % 37-47 [facility] - Chemistry and C hemistry - challengeOrdered By: Dr. Ford on 08-14-2022 ALP [Catalytic activity/Vol] 90 U/L 45-117 [facility] ALT [Catalytic activity/Vol] 18 U/L 13-56 [facility] CO2 [Moles/Vol] 26.0 mmol/L 21.0-32.0 [facility] Globulin (S) [Mass/Vol] 3.6 g/dL 2.2-4.2 [facility] Urea nitrogen/Creatinine [Mass ratio] 12.6 mg/mg 10-20 [facility] - Hematology and Cell countsOrdered By: Dr. Ford on 08-14-2022 Erythrocyte distribution width (RBC) [Entitic vol] 41.0 fL 35.1-43.9 [facility] Erythrocyte distribution width (RBC) [Ratio] 12.1 % 11.6-14.6 [facility] Immature granulocytes/100 WBC (Bld) 0.300 % 0.0-0.9 [facility] Comment on above: IG% - Immature Granu locytes (promyelocytes, myelocytes and metamyelocytes) > 1% indicates that a LEFT SHIFT is Present. MCH (RBC) [Entitic mass] 30.7 pg 27.0-32.0 [facility] Nucleated RBC/100 WBC (Bld) [Ratio] 0 % 0-5 [facility] MCHC Auto (RBC) [Mass/Vol]Or dered By: Dr. Ford on 08-14-2022 MCHC (RBC) [Mass/Vol] 33.3 g/dL 32-36 [facility] No Panel InformationOrdered By: Dr. Ford on 08-14-2022 Estimated GFR (MDRD) Amer 85 mL/min >60 [facility] Comment on above: GFR Calc Estimated GFR (MDRD) Non-Af Amer 71 mL/min >60 [facility] Comment on above: Non- GFR Calc Platelets bldOrdered By: Dr. Ford on 08-14-2022 Platelets (Bld) [#/Vol] 191 10*3/uL 150-450 [facility] Serum or plasma albumin terra urement (mass/volume)Ordered By: Dr. Ford on 08-14-2022 Albumin [Mass/Vol] 3.8 g/dL 3.2-5.0 [facility] Serum or plasma albumin/glob ulin mass ratioOrdered By: Dr. Ford on 08-14-2022 Albumin/Globulin [Mass ratio] 1.1 {ratio} 0.9-2.4 [facility] Serum or plasma calcium terra urement (mass/volume)Ordered By: Dr. Ford on 08-14-2022 Calcium [Mass/Vol] 9.4 mg/dL 8.5-10.1 [facility] Serum or plasma creatinine m easurement (mass/volume)Ordered By: Dr. Ford on 08-14-2022 Creatinine [Mass/Vol] 1.03 mg/dL 0.55-1.02 [facility] Comment on above: The validity of the calculated GFR & GFRAA in patients over 70 years has not been determined. Clinical correlation is essential. Serum or plasma urea nitroge n measurement (mass/volume)Ordered By: Dr. Ford on 08-14-2022 Urea nitrogen [Mass/Vol] 13 mg/dL 7-18 [facility] Thin prep Papanicolaou smear with manual screeningOrdered By: Dr. Ford on 08-14-2022 Thin prep Papanicolaou smear with manual screening 16 U/L 15-37 [facility] Thin prep Papanicolaou smear with manual screening 7 5-15 [facility] OBSOLETEon 04-08-2019 OBSOLETE Refill (WOOB) DORA PUGA ([id number]) 2000 F Date Time Provider Department 04/08/19 [...] by PABLO SEGAL RN on 04/12/19 Normal [facility] OBSOLETEon 02-01-2019 OBSOLETE Refill (WOOB) DORA PUGA ([id number]) 2000 F Date Time Provider Department 02/01/19 JU HARDIN ([facility] IFTIKHAR During your visit today, we recorded the following information about you: Suri Hayes RN 02/01/2019 8:13 AM Signed Refill request received from pharmacy for patients OCP Rx. Patient last seen in the office on 11/18/17. Please file temporary refill if appropriate. PSS: Please contact patient to schedule annual exam. Thank you. Suri Haeys RN Allergies As of Date: 02/01/2019 Noted Allergy Reaction CODEINE 05/20/2015 4 - Hives Date Reviewed: 11/18/2017 Reviewed by: Emi JoeSaint Monica'S HomeJose Holder - Fully Assessed Reason for Visit: [...] Status:Closed by EMI HOLDER on 02/01/19 Normal [facility] Vital Signs Date Time Vital Sign Value Performing Clinician Mellisa samson 04-17-2022 14:48-0400 Body height 160.[address] Tiffany Ford Work Phone: [facility] Work Phone: 04-17-2022 14:46-0400 Body mass index (BMI) [Ratio] 24.2 kg/m2 Dr. Tiffany Ford Work Phone: [facility] Work Phone: 04-17-2022 14:46-0400 Body weight 64.[address] Tiffany Ford Work Phone: [facility] Work Phone: 04-17-2022 14:46-0400 Diastolic blood pressure 82 mm[Hg] Dr. Tiffany Ford Work Phone: [facility] Work Phone: 04-17-2022 14:46-0400 Systolic blood pressure 135 mm[Hg] Dr. Tiffany Ford Work Phone: [facility] Work Phone: Encounters Encounter Date Encounter Type Care Provider Facility Start: 05-19-2024 End: 05-19-2024 ambulatory Tiffany Ford Facility:[facility] [place] Start: 05-19-2024 End: 05-19-2024 ambulatory Rita Valdez Facility:[facility] Start: 08-22-2022 End: 08-22-2022 ambulatory [facility] Work Phone: Start: 08-22-2022 End: 08-22-2022 Patient encounter procedure [facility]-Ultrasound, [facility] Start: 08-14-2022 End: 08-14-2022 ambulatory [facility] Work Phone: Start: 08-14-2022 End: 08-14-2022 Patient encounter procedure [facility] Start: 04-17-2022 End: 04-17-[address] Tiffany Ford Work Phone: [facility] Start: 04-11-[address] Sagrario Ford Work Phone: [facility] Procedures Date Procedure Procedure Detail Performing Clinician Start: 08-22-2022 CT of abdomen Payers Date Payer Category Payer Self-pay [id number] 2023 Unknown [id number] Unknown ANTHEM [id number] Unknown [employer] [place] [id number] Unknown [employer] [place] [place] [facility] [id number] [facility] [employer] [id number] Unknown [id number] Unknown [id number] Social History Date Type Detail Facility Start: 04-17-2022 Tobacco smoking stat [facility] Unknown if ever smoked [facility] Start: 2000 Sex Assigned At Female [facility] Evaluation note Note Date & Type Note Facility Evaluation note Diagnosis Onset Date Encounter for routine gyneco logical examination noneactive [facility] Work Phone: Evaluation note Note Date & Type Note Facility Evaluation note No assessment information availa ble [facility] Work Phone: Summary Purpose Family History No Family History Records Found Relationship Condition Age at Onset Recorded Date/T glenny mother Malignant neoplasm of stomach Unknown grandfather Malignant neoplasm of skin Unknown Malignant neoplasm of pancreas Unknown Advance Directives No Advanced Directives Records FoundNo Advanced Directives Records Found Chief Complaint and Reason for Visit 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 [employer] [facility]. provides no warranty or guarantee of the accuracy or completeness of information in this document.
[2025-07-25 16:02] LABS: hCG Titer Quant., Serum 7300 mIU/mL (<9 non-preg)
== END | disposition home or self-care (01) ==
LOC: BWCLAB 14:35
PROVIDERS: PCP Family Medicine; Visit Provider Obstetrics & Gynecology
DX: Z34.90 Encounter for supervision of normal pregnancy, unspecified, unspecified trimester (principal)
CPT/HCPCS: 36415; 84702